=== PATIENT | female | born 1985 | race Caucasian/White ===

== ENCOUNTER 2016-10-21 10:46 | Inpatient (IN) | payer BC ==
[~2016-10-21] VITALS: Ht 177.8 cm; Wt 86.4 kg
[2016-10-21] VITALS (9 sets, daily range): BP systolic 111–142; BP diastolic 66–89
[2016-10-21 11:34] LABS: EOSINOPHIL (%) 0 % (0-5); HEMATOCRIT 32.8 % (36.0-46.0); IMMATURE GRANULOCYTE (%) 0.3 % (0.0-0.7); IMMATURE GRANULOCYTE COUNT 0.6 K/uL; LYMPHOCYTE COUNT 1.2 K/uL (1.0-2.8); MCH 30.2 PG (29.0-34.0); MCHC 34.1 G/DL (30.0-36.0); MCV 88.4 FL (83-99); MEAN PLAT.VOLUME 11.6 uM^3 (9.5-12.4); MONOCYTE (%) 6.8 % (3-12); MONOCYTE COUNT 1.3 K/uL (0-0.8); NEUTROPHIL (%) 86.5 % (45-76); NEUTROPHIL COUNT 16.8 K/uL (1.8-6.4); PLATELET COUNT 246 K/uL (156-360); RBC DIS.WIDTH-CV 13.4 % (11.8-14.6); RBC DIS.WIDTH-SD 41.8 % (39-53); RED BLOOD COUNT 3.71 M/uL (3.80-5.20); WHITE BLOOD COUNT 19.4 K/uL (4.1-10.2)
[2016-10-21] MEDS ORDERED: EXPECTA PRENAT1 EACH PO (12:32)
[2016-10-21 17:20] LABS: AMPHETAMINES QUANT VALUE 0 NG/ML; BARBITUATES QUANT VALUE 0 NG/ML; BENZODIAZEPINES QUANT VALUE 0 NG/ML; BENZODIAZEPINES, URINE SCREEN Negative (200 ng/mL); MARIJUANA QUANT VALUE 0 NG/ML; OPIATES QUANTITATIVE VALUE 0 NG/ML; PHENCYCLIDINE QUANT VALUE 0 NG/ML
[2016-10-22 07:35] VITALS: BP 107/66
[2016-10-22 09:11] LABS: EOSINOPHIL (%) 0.4 % (0-5); EOSINOPHIL COUNT 0.1 K/uL (0-0.3); HEMATOCRIT 31.3 % (36.0-46.0); IMMATURE GRANULOCYTE (%) 0.5 % (0.0-0.7); IMMATURE GRANULOCYTE COUNT 0.1 K/uL; LYMPHOCYTE COUNT 2.5 K/uL (1.0-2.8); MCH 30.6 PG (29.0-34.0); MCHC 33.5 G/DL (30.0-36.0); MCV 91.3 FL (83-99); MEAN PLAT.VOLUME 11.6 uM^3 (9.5-12.4); MONOCYTE (%) 6.5 % (3-12); MONOCYTE COUNT 0.8 K/uL (0-0.8); NEUTROPHIL (%) 71.1 % (45-76); NEUTROPHIL COUNT 8.4 K/uL (1.8-6.4); PLATELET COUNT 220 K/uL (156-360); RBC DIS.WIDTH-SD 46.3 % (39-53); RED BLOOD COUNT 3.43 M/uL (3.80-5.20); WHITE BLOOD COUNT 11.8 K/uL (4.1-10.2)
[2016-10-22] MEDS ORDERED: IBUPROFEN800 MG PO (09:15)
[2016-10-22 11:24] LABS: ANTI-HIV (AIDS STAT TEST) NONREACTIVE; INTERNAL CONTROL VALID? YES
[2016-10-22 15:20] VITALS: BP 111/69
[2016-10-22 22:37] VITALS: BP 113/76
[2016-10-23 07:43] VITALS: BP 106/70
[2016-10-23 10:04] LABS: TREPONEMA ANTIBODY NEGATIVE (NEGATIVE)
[2016-10-23 12:04] LABS: HBSG INDEX 0.21; HIV INDEX 0.07; HIV-1/2 AB/AG COMBO Nonreactive
== END 2016-10-23 16:02 | disposition home or self-care (01) | DRG 774 ==
LOC: 2WEST 10:46
PROVIDERS: Obstetrics & Gynecology; Obstetrics & Gynecology Obstetrics
PROC: 10E0XZZ Delivery of Products of Conception, External Approach (ICD-10-PCS; principal; 2016-10-21)
DX: O72.2 Delayed and secondary postpartum hemorrhage (principal)
CPT/HCPCS: 85025; 86703; 86780; 86850; 86900; 86901; 87340